=== PATIENT | male | born 1990 | race Caucasian/White ===

== ENCOUNTER → 2019-07-17 10:56 | Outpatient (CLI) | payer OTHER, SELFPAY ==
--- NOTE | 2019-07-17 | ECG_ITS ---
APPROVED REPORT Exam: Resting ECG HR:80 bpm ECG Measurements Heart Rate 80 AXES SC 114 P 38 QRSd 96 QRS 60 QT 382 T 25 QTc 440 <Conclusion> Normal sinus rhythm Normal ECG Electronically signed by : Sanju Li, 07/17/2019 11:28:54
== END ==
PROVIDERS: PCP Internal Medicine; Visit Provider Internal Medicine
DX: R07.9 Chest pain, unspecified (principal); I10 Essential (primary) hypertension
CPT/HCPCS: 93005

== ENCOUNTER → 2021-01-23 21:50 | Outpatient (CLI) | payer SELFPAY | PROVIDERS: Visit Provider Nurse Practitioner Family | DX: Z11.52 Encounter for screening for COVID-19 (principal) | CPT/HCPCS: U0003 ==

== ENCOUNTER → 2021-06-07 19:22 | Outpatient (CLI) | payer OTHER, SELFPAY | PROVIDERS: Visit Provider Nurse Practitioner Family | DX: Z20.822 Contact with and (suspected) exposure to COVID-19 (principal); J02.9 Acute pharyngitis, unspecified | CPT/HCPCS: C9803; U0003; U0005 ==

== ENCOUNTER → 2021-09-15 10:58 | Outpatient (CLI) | payer OTHER, SELFPAY | PROVIDERS: PCP Internal Medicine; Visit Provider Internal Medicine Cardiovascular Disease | DX: R00.1 Bradycardia, unspecified (principal); I10 Essential (primary) hypertension; F10.21 Alcohol dependence, in remission; R06.83 Snoring; Z87.898 Personal history of other specified conditions | CPT/HCPCS: 93270 ==

== ENCOUNTER → 2021-09-18 14:34 | Outpatient (CLI) | payer OTHER, SELFPAY | PROVIDERS: PCP Internal Medicine; Visit Provider Specialist | DX: G47.30 Sleep apnea, unspecified (principal); R06.83 Snoring | CPT/HCPCS: 95806 ==

== ENCOUNTER → 2021-09-22 10:07 | Outpatient (CLI) | payer OTHER, SELFPAY ==
--- NOTE | 2021-09-22 10:09 | CA_ITS ---
FINAL REPORT CLINICAL HISTORY: HTN,HLD,EX SMOKER,MERIDA,OPTIC NEURITIS FINDINGS: An ultrasound of the carotid arteries was performed. Duplex Doppler evaluation with spectral analysis was performed. The peak systolic velocity of the right common carotid artery is 119 cm/s. The peak systolic velocity of the right internal carotid artery is 71 cm/s and end diastolic velocity 29 cm/s. A small amount of plaque is present. The right external carotid artery is patent. The right vertebral artery is patent with antegrade flow. ICA/CCA ratio: 0.7 The peak systolic velocity of the left common carotid artery is 114 cm/s. The peak systolic velocity of the left internal carotid artery is 65 cm/s and end diastolic velocity 19 cm/s. A small amount of plaque is present. The left external carotid artery is patent. The left vertebral artery is patent with antegrade flow. ICA/CCA ratio: 0.6 IMPRESSION: Less than 50% bilateral carotid stenoses. Bilateral patent vertebral arteries with antegrade flow. Reviewed, Interpreted and Dictated by Jese Armstrong MD Transcribed by Antonio Greene Authenticated by Jese Armstrong MD on 09/22/2021 11:33:02 AM [facility]
--- NOTE | 2021-09-22 10:09 | CA_ITS ---
APPROVED REPORT EXAM: Comprehensive 2D, Doppler, and color-flow Echocardiogram Paramedic Supervisor: Cookie Mccauley RDCS Ht: 5 ft 11 in Wt: 270lbs BSA: 2.40 BP: 138/81 mmHg Indications: BRADYCARDIA, BUBBLE STUDY DONE 2D Dimensions LVOT 2.63 cm (M/F) 1.5-2.5 M-Mode Dimensions RVDd 2.20 cm (0.9-2.6) LA Diam 2.93 cm (1.9-4.0) LVDd 6.34 cm (3.5-5.7) Ao Diam 3.43 cm (2.0-3.7) LVDs 5.24 cm (3.5-5.7) IVSd 0.83 cm (0.6-1.1) PWd 0.87 cm (0.6-1.1) EF (Teich) 35.40% FS 17.40% EDV (Teich) 204.10 mL TAPSE 1.65 (<1.7) ESV (Teich) 131.80 mL LV Diastology E Decel Time 150.00 (160-240 msec) E/A Ratio 1.4 MED E' 11.80 (< 7 cm/sec) E'/MED E' Ratio 5.70 (>14) LAT E' 15.20 (<10 cm/sec) E/LAT E' Ratio 4.43 (>14) Mitral Valve MV E Max Mike. 67.00 (40-130 cm/s) MV A Velocity 47.00 (40-130 cm/s) E/A Ratio 1.43 MV Decel. Time 150.00 (160-240 ms) MV PHT 44.00 ms Left Ventricle Left atrium is normal size, the ventricle is normal size, there is no concentric left ventricular hypertrophy, estimated ejection fraction 55% with no regional wall motion abnormality, diastolic parameters are within normal range. Right Ventricle Right atrium and right ventricle are normal size and contractility. Atria Intra-atrial septum is intact, there is no flow across the atrial septum agitated saline contrast study did not identify intracardiac shunt. Aortic Valve Aortic valve is grossly normal there is no aortic stenosis or aortic insufficiency. Mitral Valve Mitral valve is grossly normal, there is trace mitral regurgitation. Tricuspid Valve Tricuspid valve grossly normal, there is trace tricuspid regurgitation. Pulmonic Valve Pulmonic valve is poorly visualized. Great Vessels Aortic root is normal size. Inferior vena cava is normal size with normal inspiratory collapse. Pericardium No significant pericardial effusion noted. Conclusion 1. Normal left ventricular size, preserved left ventricular static function, estimated ejection fraction 55% with no regional wall motion abnormality, diastolic parameters are within normal range. 2. Trace mitral and tricuspid regurgitation. 3. No significant pericardial effusion noted. 4. Agitated saline contrast study did not identify intracardiac shunt. 5. Inferior vena cava normal size with normal inspiratory collapse. Electronically signed by : Doanldo Cyr MD 09/22/2021 12:44:46
--- NOTE | 2021-09-22 14:04 | MR_ITS ---
FINAL REPORT CLINICAL HISTORY: new onset daily headaches FINDINGS: Multi planar MR imaging was obtained through the brain without contrast. The midline structures appear intact. There is no evidence of Chiari malformation. On T2 and flair axial images the brain parenchyma is homogeneous. On diffusion-weighted images there is no evidence of restricted diffusion. The visualized paranasal sinuses demonstrate normal signal voids. The seventh and eighth nerve root complexes are intact. IMPRESSION: Essentially unremarkable nonenhanced brain MRI. Reviewed, Interpreted and Dictated by Jese Armstrong MD Transcribed by Antonio Greene Authenticated by Jese Armstrong MD on 09/22/2021 03:58:48 PM [facility]
--- NOTE | 2021-09-22 14:04 | MR_ITS ---
FINAL REPORT CLINICAL HISTORY: New onset daily headaches FINDINGS: Multiple projection images of the brain arterial vasculature were obtained without contrast. The raw data images were also reviewed. The distal internal carotid, distal vertebral and basilar arteries have an unremarkable appearance without evidence of significant stenosis or occlusion. The proximal anterior, middle and posterior cerebral arteries have an unremarkable appearance. There is no evidence of significant stenosis or major branch occlusion. No aneurysm or vascular malformation is identified. IMPRESSION: Unremarkable MR angiogram of the head. Reviewed, Interpreted and Dictated by Jese Armstrong MD Transcribed by Antonio Greene Authenticated by Jese Armstrong MD on 09/22/2021 03:58:48 PM [facility]
--- NOTE | 2021-09-22 14:04 | MR_ITS ---
FINAL REPORT CLINICAL HISTORY: New onset daily headaches FINDINGS: Multiple projection images of the neck arterial vasculature were obtained without contrast. The raw data images were also reviewed. The right common carotid artery has an unremarkable appearance without evidence of stenosis or occlusion. The right internal carotid artery has an unremarkable appearance without evidence of stenosis or occlusion. The right external carotid artery is patent. The right vertebral artery is patent without evidence of stenosis. The left common carotid artery has an unremarkable appearance without evidence of stenosis or occlusion. The left internal carotid artery is patent without evidence of stenosis or occlusion. The left external carotid artery is patent. The left vertebral artery is patent without evidence of stenosis. IMPRESSION: Unremarkable MR angiogram of the neck without evidence of stenosis or occlusion. Reviewed, Interpreted and Dictated by Jese Armstrong MD Transcribed by Archana Sawyer Authenticated by Jese Armstrong MD on 09/22/2021 04:25:25 PM [facility]
== END ==
PROVIDERS: PCP Internal Medicine; Visit Provider Internal Medicine Cardiovascular Disease
DX: G44.52 New daily persistent headache (NDPH) (principal); R00.1 Bradycardia, unspecified; F10.21 Alcohol dependence, in remission; I10 Essential (primary) hypertension; H46.9 Unspecified optic neuritis; R06.83 Snoring; Z87.898 Personal history of other specified conditions; Z82.49 Family history of ischemic heart disease and other diseases of the circulatory system
CPT/HCPCS: 70544; 70547; 70551; 93306; 93880

== ENCOUNTER → 2021-10-09 11:21 | Outpatient (CLI) | payer OTHER, SELFPAY ==
[2021-10-09 11:45] LABS: Basophils # 0.1 K/mm3 (0-0.2); Basophils % 1.5 % (0.1-2.0); Eosinophils # 0.1 K/mm3 (0.0-0.4); Eosinophils % 1.6 % (0.1-12.0); Hematocrit 46.4 % (42.0-52.0); Hemoglobin 16.5 g/dL (14.1-18.0); Lymphocytes # 2.2 K/mm3 (0.7-4.5); Lymphocytes % 30.6 % (10-50); Mean Corpuscular HGB Conc 35.5 g/dL (31.8-35.4); Mean Corpuscular Hemoglobin 33.8 pg (27.0-31.2); Mean Corpuscular Volume 95.2 fl (80-94); Mean Platelet Volume 8.3 fl (7.4-10.4); Monocytes # 0.3 K/mm3 (0.1-1.0); Neutrophils # 4.5 K/mm3 (1.8-7.8); Neutrophils % 62.4 % (37.0-80.0); Platelet Count 294 K/mm3 (142-424); Red Blood Count 4.87 M/mm3 (4.60-6.20); Red Cell Distribution Width 13.4 % (11.5-17.5); White Blood Count 7.2 K/mm3 (4.8-10.8)
[2021-10-09 12:15] LABS: Erythrocyte Sedimentation Rate 6 mm/hr (0-15)
[2021-10-09 16:59] LABS: Alanine Aminotransferase 41 U/L (12-78); Albumin Level 4.8 g/dl (3.5-5.0); Albumin/Globulin Ratio 1.9 (1.1-1.8); Alkaline Phosphatase 67 U/L (38-126); Anion Gap 11.9 mEq/L (5-15); Aspartate Amino Transferase 41 U/L (17-59); Bilirubin,Total 0.5 mg/dl (0.2-1.3); Blood Urea Nitrogen 11 mg/dl (9-20); Calcium 9.9 mg/dl (8.4-10.2); Carbon Dioxide 32 mmol/L (22.0-30.0); Chloride 100 mmol/L (98-107); Chol/HDL Ratio 2.6 (1-3.5); Cholesterol 123 mg/dl (140-200); Estimated Glomerular Filt Rate 98 ml/min (>60); GFR (African American) 118 ML/MIN (>60); Globulin 2.5 g/dL (1.3-3.2); Glucose 97 mg/dl (74-100); HDL Cholesterol 47 mg/dl (40-60); Potassium 3.9 mmoL/L (3.5-5.1); Sodium 140 mmol/L (136-145); Total Protein,Serum 7.3 g/dl (6.3-8.2); Triglycerides 68 mg/dl (30-150); VLDL Cholesterol 14 mg/dL (0-40)
[2021-10-09 17:09] LABS: Direct LDL Cholesterol 54.02 mg/dL (100-129)
[2021-10-09 17:16] LABS: Free T4 (Free Thyroxine) 0.94 ng/dl (0.78-2.19)
[2021-10-09 17:31] LABS: Thyroid Stimulating Hormone 3.91 uIU/mL (0.465-4.68)
[2021-10-09 18:07] LABS: Vitamin B12 370 pg/mL (239-931)
[2021-10-16 12:21] LABS: Vitamin B1 197.2 nmol/L (66.5-200.0)
[2021-10-17 17:10] LABS: Vitamin B6 136.7 ug/L (3.4-65.2)
[2021-10-21 18:42] LABS: Antinuclear Antibodies (ANA) NEGATIVE
== END ==
PROVIDERS: PCP Specialist; Visit Provider Internal Medicine Cardiovascular Disease
DX: G44.52 New daily persistent headache (NDPH) (principal); H46.9 Unspecified optic neuritis; I10 Essential (primary) hypertension; H46.8 Other optic neuritis; Z71.6 Tobacco abuse counseling
CPT/HCPCS: 36415; 80053; 80061; 82607; 82746; 84207; 84425; 84439; 84443; 85025; 85651; 86038

== ENCOUNTER → 2021-10-13 11:27 | Outpatient (CLI) | payer OTHER, SELFPAY ==
--- NOTE | 2021-10-13 11:34 | XR_ITS ---
FINAL REPORT CLINICAL HISTORY: LILIA S OPTIC NEUROPATHY FINDINGS: Two views of the chest were obtained. The heart size and pulmonary vascularity are within normal limits. The mediastinum is normal. No acute pulmonary abnormality is identified. There is no pneumothorax. The bony thorax is intact. IMPRESSION: No active cardiopulmonary disease. Reviewed, Interpreted and Dictated by Yuri Jones III, MD Transcribed by Jenna Herron Authenticated by Yuri Jones III, MD on 10/13/2021 01:37:29 PM [facility]
== END ==
PROVIDERS: PCP Ophthalmology; Visit Provider Internal Medicine
DX: H47.22 Hereditary optic atrophy (principal)
CPT/HCPCS: 71046

== ENCOUNTER 2023-12-18 16:56 | Outpatient (CLI) | payer OTHER, SELFPAY ==
[2023-12-18 17:16] LABS: Chloride 106 mmol/L (98-107); Potassium 4.3 mmoL/L (3.5-5.1); Sodium 140 mmol/L (136-145)
[2023-12-18 17:18] LABS: Alanine Aminotransferase 26 U/L (12-78); Alkaline Phosphatase 58 U/L (38-126); Aspartate Amino Transferase 33 U/L (17-59); Bilirubin,Total 0.6 mg/dl (0.2-1.3); Blood Urea Nitrogen 11 mg/dl (9-20); Estimated Glomerular Filt Rate 110 ml/min (>60); GFR (African American) 133 ML/MIN (>60)
[2023-12-18 17:19] LABS: Albumin Level 4.3 g/dl (3.5-5.0); Albumin/Globulin Ratio 1.5 (1.1-1.8); Anion Gap 9.3 mEq/L (5-15); Calcium 9.6 mg/dl (8.4-10.2); Carbon Dioxide 29 mmol/L (22.0-30.0); Chol/HDL Ratio 3.5 (1-3.5); Cholesterol 191 mg/dl (140-200); Globulin 2.8 g/dL (1.3-3.2); Glucose 74 mg/dl (74-100); HDL Cholesterol 54 mg/dl (40-60); Total Protein,Serum 7.1 g/dl (6.3-8.2); Triglycerides 87 mg/dl (30-150); VLDL Cholesterol 17 mg/dL (0-40)
[2023-12-18 17:30] LABS: Direct LDL Cholesterol 107.43 mg/dL (100-129)
[2023-12-18 17:42] LABS: Basophils % 0.5 % (0.1-2.0); Eosinophils # 0.1 K/mm3 (0.0-0.4); Eosinophils % 2.4 % (0.1-12.0); Hematocrit 50.4 % (42.0-52.0); Lymphocytes # 1.7 K/mm3 (0.7-4.5); Lymphocytes % 34.7 % (10-50); Mean Corpuscular HGB Conc 33.7 g/dL (31.8-35.4); Mean Corpuscular Hemoglobin 33.8 pg (27.0-31.2); Mean Corpuscular Volume 100.6 fl (80-94); Mean Platelet Volume 8.9 fl (7.4-10.4); Monocytes # 0.3 K/mm3 (0.1-1.0); Monocytes % 5.3 % (1.7-9.3); Neutrophils # 2.8 K/mm3 (1.8-7.8); Neutrophils % 57.1 % (37.0-80.0); Platelet Count 259 K/mm3 (142-424); Red Blood Count 5.01 M/mm3 (4.60-6.20); Red Cell Distribution Width 13.8 % (11.5-17.5); White Blood Count 4.8 K/mm3 (4.8-10.8)
[2023-12-19 09:40] LABS: Vitamin B12 253 pg/mL (239-931)
== END 2023-12-18 23:59 | disposition home or self-care (01) ==
LOC: LAB.DROPOF 16:56
PROVIDERS: PCP Internal Medicine; Visit Provider Internal Medicine
DX: I10 Essential (primary) hypertension (principal); E78.5 Hyperlipidemia, unspecified; Z72.0 Tobacco use
CPT/HCPCS: 80053; 80061; 82607; 85025